=== PATIENT | female | born 1990 | race Caucasian/White ===

== ENCOUNTER 2016-05-02 09:49 | Outpatient (CLI) | payer OTHER | END 2016-05-02 09:50 | disposition home or self-care (01) | DX: G47.10 Hypersomnia, unspecified (principal); G47.8 Other sleep disorders; R06.83 Snoring; G47.00 Insomnia, unspecified ==

== ENCOUNTER 2016-05-30 12:35 | Emergency (ER) | payer OTHER ==
[2016-05-30] MEDS ORDERED: ACYCLOVIR 200 MG CAPSULE PO STA (15:11)
[2016-05-30] MEDS ORDERED: ACYCLOVIR 200 MG CAPSULE PO ONE (15:17)
== END 2016-05-30 15:22 | disposition home or self-care (01) ==
DX: B02.9 Zoster without complications (principal)
CPT/HCPCS: 99283; A9270

== ENCOUNTER 2016-06-28 21:53 | Outpatient (CLI) | payer OTHER | END 2016-06-28 21:54 | disposition home or self-care (01) | DX: R06.83 Snoring (principal); G47.8 Other sleep disorders ==

== ENCOUNTER 2016-07-17 15:31 | Outpatient (CLI) | payer OTHER | END 2016-07-17 15:32 | disposition home or self-care (01) | DX: R06.83 Snoring (principal); G47.00 Insomnia, unspecified ==

== ENCOUNTER 2017-11-07 13:39 | Emergency (ER) | payer OTHER ==
[2017-11-07 13:59] VITALS: BP 130/80
--- NOTE | 2017-11-07 14:01 | ED Physician Documentation ---
PD HPI OPHTHO - Stated complaint Stated Complaint: R EYE IRRITATION - History obtained from History obtained from: Patient - History of Present Illness Timing - onset: Today (She has had right eye irritation that started today and she noticed swelling what she describes as a blister of the cornea especially laterally. She also notes forward a lesion on the tip of her nose, it is not painful. She tried squeezing it thinking it was a pimple or something but nothing came out.) Review of Systems Constitutional: denies: Fever, Chills Nose: denies: Rhinorrhea / runny nose, Congestion Cardiac: denies: Chest pain / pressure, Palpitations Respiratory: denies: Dyspnea, Cough PD PAST MEDICAL HISTORY - Past Medical History Cardiovascular: None Respiratory: None Endocrine/Autoimmune: None - Present Medications Home Medications: Ambulatory Orders Medication Instructions Recorded Confirmed Acyclovir 800 mg PO 5XD 10 Days tablet 11/07/17 Erythromycin Base [Erythromycin] 1 applic OP 5XD 7 Days oint...g. 11/07/17 - Allergies Allergies/Adverse Reactions: Allergies Allergy/AdvReac Type Severity Reaction Status Date / Time Sulfa (Sulfonamide Allergy Rash Verified 05/30/16 12:42 Antibiotics) - Social History Does the pt smoke?: No Smoking Status: Never smoker PD ED PE NORMAL - Vitals Vital signs reviewed: Yes - General General: Alert and oriented X 3 - HEENT HEENT: Other (She has conjunctivitis with chemosis on the right, there is no flourescein uptake. She has what looks like kind of a herpetic lesion on the tip of the nose, but I do not see any evidence of shingles elsewhere on the face and it is pretty localized and again there is no evidence of herpes ophthalmicus. He could also be kind of a rosacea thing or just a pimple as well. I think the better part of valor here is to put her on acyclovir though.) - Neuro Neuro: Alert and oriented X 3, Normal speech Results - Vitals Vitals: Vital Signs - 24 hr 11/07/17 13:57 Temperature 36.7 C Heart Rate 60 Respiratory 14 Rate Blood Pressure 130/80 O2 Saturation 99 Oxygen O2 Source Room air PD MEDICAL DECISION MAKING - Sepsis Event Vital Signs: Vital Signs - 24 hr 11/07/17 13:57 Temperature 36.7 C Heart Rate 60 Respiratory 14 Rate Blood Pressure 130/80 O2 Saturation 99 Oxygen O2 Source Room air Departure - Departure Disposition: Home, Self Care Clinical Impression: Herpes simplex infection of skin Conjunctivitis Qualifiers: Conjunctivitis type: acute Acute conjunctivitis type: unspecified Laterality: right Qualified Code(s): H10.31 - Unspecified acute conjunctivitis, right eye Condition: Good Record reviewed to determine appropriate education?: Yes Instructions: ED Conjunctivitis Nonspecific, ED Herpes Simplex Virus Type 1 Prescriptions: Acyclovir 800 mg PO 5XD 10 Days tablet Erythromycin Base [Erythromycin] 1 applic OP 5XD 7 Days oint...g. Comments: As discussed, your he should be better in a few days, return if worsening or if your vision becomes affected. Also the skin lesion on your nose should clear up in a few days as well, return if worsening. Follow-up with your doctor regardless next week.
== END 2017-11-07 14:08 | disposition home or self-care (01) ==
LOC: ED 13:39
DX: H10.9 Unspecified conjunctivitis (principal); H11.421 Conjunctival edema, right eye; B00.89 Other herpesviral infection
CPT/HCPCS: 99283